=== PATIENT | female | born 1980 | race Caucasian/White ===

== ENCOUNTER → 2017-01-06 | Outpatient (CLI) | payer SELFPAY ==
[~2017-01-06] MED LIST: ALBU8.5H5 IH; IBUP-1264 PO
--- NOTE | 2017-01-06 15:03 | DI ---
Indication: ITS.REASON: R05 COUGH Procedure: CHEST, PA LATERAL: Encounter: Initial Comparison: None Technique: PA and lateral radiographs of the chest were obtained. Findings: Lungs and airways: Normal lung volumes. No focal airspace consolidation. Normal pulmonary vasculature. Pleura: No pleural effusion or pneumothorax. Heart and mediastinum: The cardiomediastinal silhouette and great vessels are within normal limits. Osseous structures and soft tissues: No acute osseous abnormality is seen. Impression: No acute cardiopulmonary process. .
== END ==
LOC: IMA 14:36
PROVIDERS: ATTEND Nurse Practitioner Family
DX: R05 Cough (principal)